=== PATIENT | female | born 2000 | race Caucasian/White ===

== ENCOUNTER 2022-03-02 12:59 | Outpatient (CLI) | payer MEDICAID ==
[~2022-03-02] VITALS: Ht 157.5 cm; Wt 64.1 kg
[2022-03-02 13:02] VITALS: BP 111/67
[2022-03-02 13:05] VITALS: BP 111/67
[2022-03-02 13:27] LABS: BILIRUBIN,URINE NEGATIVE (NEGATIVE); CLARITY,URINE CLEAR; COLOR,URINE YELLOW; GLUCOSE, URINE (UA) NEGATIVE (NEGATIVE); KETONES,URINE 1+ (NEGATIVE); LEUKOCYTE ESTERASE ,URINE 1+ (NEGATIVE); NITRITE,URINE NEGATIVE (NEGATIVE); PH,URINE 6.5 (5-9); PROTEIN,URINE NEGATIVE (NEGATIVE)
[2022-03-02 13:48] LABS: BACTERIA,URINE MODERATE /HPF
[2022-03-02 14:00] VITALS: BP 111/67
[2022-03-02] MEDS ORDERED: ONDANSETRON 4 MG (ZOFRAN) ORAL DISSOLVE TAB PO ONE (14:15)
[2022-03-02] MEDS ORDERED: ACETAMINOPHEN 500 MG TAB (TYLENOL) PO ONE (14:15)
[2022-03-02 14:39] VITALS: BP 109/67
[2022-03-02] MEDS ORDERED: PREN1TAB19 PO (15:24)
[2022-03-02] MEDS ORDERED: ONDA4TAB11 PO (15:25)
[2022-03-02 15:41] VITALS: BP 109/67
--- NOTE | 2022-03-03 08:37 | Physician Query-Final Dx ---
Clinic Account Progress/Dx Physician Query: Please give diagnosis Please include # of weeks gestation Date of Service March 02, 2022 at 12:59 HERLINDA,OctMar 03, 2022 08:37
== END 2022-03-02 15:41 | disposition home or self-care (01) ==
LOC: WSo 12:59 → LDRP 12:59 → WSo 15:41
PROVIDERS: ATTEND Family Medicine
DX: Z34.93 Encounter for supervision of normal pregnancy, unspecified, third trimester (principal); Z3A.39 39 weeks gestation of pregnancy
CPT/HCPCS: 81000; 84112; 87088; G0463; 99214

== ENCOUNTER 2022-03-07 14:45 | Inpatient (IN) | payer OTHER, MEDICAID ==
[2022-03-07] VITALS (8 sets, daily range): BP systolic 85–115; BP diastolic 48–64
[~2022-03-07] VITALS: Ht 157.5 cm; Wt 66.2 kg
[~2022-03-07 14:45] MED LIST: ONDA4TAB11 PO; PREN1TAB19 PO
[2022-03-07] MEDS ORDERED: LACTATED RINGERS 1,000 ML IV SCH (20:15)
[2022-03-07] MEDS ORDERED: CATHETER FLUSH 10 ML SYR IV PRN (20:15)
[2022-03-07] MEDS ORDERED: BUTORPHANOL INJ 2 MG/ML (STADOL) VIAL IV PRN (20:15)
[2022-03-07] MEDS ORDERED: LIDOCAINE/EPI 2% 1:200,00 (XYLOCAINE) 10 ML VIAL INJ PRN (20:15)
[2022-03-07] MEDS ORDERED: MINERAL OIL 30 ML TOP PRN (20:15)
[2022-03-07] MEDS ORDERED: TERBUTALINE INJ 1 MG/ML (BRETHINE) AMP SC PRN (20:15)
[2022-03-07] MEDS ORDERED: ZOLPIDEM 5 MG (AMBIEN) TAB PO ONE (20:15)
[2022-03-07] MEDS ORDERED: ONDANSETRON 4 MG/2 ML (SDV) Z0FRAN ONE (20:16)
[2022-03-07] MEDS ORDERED: D5 LR IV SOLUTION 1,000 ML IV ONE (20:17)
[2022-03-07] MEDS ORDERED: CLINDAMYCIN 900 MG/50 ML IVPB 50 ML IV ONE (20:21)
[2022-03-07] MEDS: D5 LR IV SOLUTION 1,000 ML IV SCH (20:34)
[2022-03-07] MEDS: ONDANSETRON 4 MG/2 ML (SDV) Z0FRAN IVP PRN (20:34)
[2022-03-07 20:38] LABS: BILIRUBIN,URINE NEGATIVE (NEGATIVE); CLARITY,URINE CLEAR; COLOR,URINE YELLOW; GLUCOSE, URINE (UA) NEGATIVE (NEGATIVE); KETONES,URINE NEGATIVE (NEGATIVE); LEUKOCYTE ESTERASE ,URINE 1+ (NEGATIVE); NITRITE,URINE NEGATIVE (NEGATIVE); PH,URINE 6.5 (5-9); PROTEIN,URINE NEGATIVE (NEGATIVE)
[2022-03-07 20:38] LABS: BASOPHILS % (AUTO) 0 % (0-10); EOSINOPHILS # (AUTO) 0.1 10^3/uL (0.0-0.3); EOSINOPHILS % (AUTO) 1 % (0-10); HEMATOCRIT 31 % (35-52); HEMOGLOBIN 10.2 g/dL (11.5-16.0); LYMPHOCYTES # (AUTO) 1.4 10^3/uL (1.0-4.0); LYMPHOCYTES % (AUTO) 14 % (12-44); MEAN CORPUSCULAR HEMOGLOBIN 27 pg (25-34); MEAN CORPUSCULAR HGB CONC 33 g/dL (32-36); MEAN CORPUSCULAR VOLUME 82 fL (80-99); MEAN PLATELET VOLUME 12.1 fL (9.0-12.2); MONOCYTES # (AUTO) 0.9 10^3/uL (0.0-1.0); MONOCYTES % (AUTO) 9 % (0-12); NEUTROPHILS # (AUTO) 7.7 10^3/uL (1.8-7.8); NEUTROPHILS % (AUTO) 76 % (42-75); PLATELET COUNT 225 10^3/uL (130-400); WHITE BLOOD COUNT 10.2 10^3/uL (4.3-11.0)
[2022-03-07 20:48] LABS: BACTERIA,URINE LARGE /HPF
[2022-03-07] MEDS: CLINDAMYCIN 900 MG/50 ML IVPB 50 ML IV SCH (21:06)
[2022-03-07] MEDS ORDERED: ZOLPIDEM 5 MG (AMBIEN) TAB ONE (22:50)
[2022-03-08] VITALS (50 sets, daily range): BP systolic 81–125; BP diastolic 46–81
[2022-03-08] MEDS: D5 LR IV SOLUTION 1,000 ML IV SCH (05:09)
[2022-03-08] MEDS: CLINDAMYCIN 900 MG/50 ML IVPB 50 ML IV SCH ×2 (05:09→12:50)
--- NOTE | 2022-03-08 06:32 | History & Physical-OB ---
OB - Chief Complaint & HPI Date/Time Date of Admission: Date of Admission: Mar 07, 2022 at 19:21 Date seen by a Provider: Mar 08, 2022 Time Seen by a Provider: 06:25 Chief Complaint/History OB-Reason for Admission/Chief: Induction of Labor Hx : 1 Hx Para: 0 Expected Date of Delivery: Mar 08, 2022 Gestational Age in Weeks: 39 Gestational Age in Days: 6 Admission Nurse Assessment Rev: Yes History of Labs GBS positive Allergies and Home Medications Allergies Coded Allergies: Penicillins (Verified Allergy, Unknown, 03/02/22) PT STATES UNKNOWNALLERGY. PARENT TOLD HER A CHILD SHE COULDN'T TAKE PCN Patient Home Medication List Home Medication List Reviewed: Yes Ondansetron (Ondansetron Odt) 4 Mg Tab.rapdis, 4 MG PO DAILY, (Reported) Entered as Reported by: BROOKS HERRON on 03/02/22 1525 Vit/Iron Fumarate/FA ( Vitamins Tablet) 28 Mg Iron-800 Mcg Tablet, 1 EACH PO DAILY, (Reported) Entered as Reported by: BROOKS HERRON on 03/02/22 1524 OB - History Hx of Present Care: Yes Ultrasounds: Normal mid trimester US Obstetrical Complications: None Medical Complications: None Patient Past Medical History no chronic medical problems Immunizations Influenza Vaccine Up-to-Date: Yes; Up-to-Date First/Initial COVID19 Vaccine: 2020 unsure of month (thinks Jun.) Second COVID19 Vaccination: 2020 unsure of month (thinks Sep.) COVID19 Vaccine Grapple Crew Leader: Unsure OB - Admission Exam Physical Exam Vitals: Vital Signs 03/08/22 03/08/22 03:41 04:40 Temp 36.6 Pulse 107 Resp 20 B/P (MAP) 104/57 (73) Pulse Ox 98 O2 Delivery Room Air HEENT: Moist Membranes Heart: Rhythm Normal Lungs: Clear Abdomen: Gravid Cervical Dilatation: 1cm Effacement: 50% Station: -3 Membranes: Intact Accelerations: Accelerations Present Short Term Variability: Present Job Superintendent Variability: Average (6-25) Contractions on Admission: 6-10 Minutes Apart Intensity: Mild Estes Scoring Tool (Modified) Dilation (cm): 1-2cm (1) Effacement (%): 31-51% (1) Descent/Station: -3 (0) Cervix Consistency: Medium(1) Cervix Position: Middle/Mid-Position (1) Estes Score: 4 Labs Laboratory Tests Test 03/07/22 19:30 03/07/22 20:00 Range/Units Urine Color YELLOW Urine Clarity CLEAR Urine pH 6.5 5-9 Urine Specific [place] 1.010 L 1.016-1.022 Urine Protein NEGATIVE NEGATIVE Urine Glucose (UA) NEGATIVE NEGATIVE Urine Ketones NEGATIVE NEGATIVE Urine Nitrite NEGATIVE NEGATIVE Urine Bilirubin NEGATIVE NEGATIVE Urine Urobilinogen 0.2 < = 1.0 MG/DL Urine Leukocyte Esterase 1+ H NEGATIVE Urine RBC (Auto) NEGATIVE NEGATIVE Urine RBC NONE /HPF Urine WBC 5-10 H /HPF Urine Squamous Epithelial Cells 5-10 /HPF Urine Renal Epithelial Cells NONE /HPF Urine Crystals NONE /LPF Urine Bacteria LARGE H /HPF Urine Casts NONE /LPF Urine Mucus SMALL H /LPF Urine Culture Indicated YES White Blood Count 10.2 4.3-11.0 10^3/uL Red Blood Count 3.81 3.80-5.11 10^6/uL Hemoglobin 10.2 L 11.5-16.0 g/dL Hematocrit 31 L 35-52 % Mean Corpuscular Volume 82 80-99 fL Mean Corpuscular Hemoglobin 27 25-34 pg Mean Corpuscular Hemoglobin Concent 33 32-36 g/dL Red Cell Distribution Width 14.0 10.0-14.5 % Platelet Count 225 130-400 10^3/uL Mean Platelet Volume 12.1 9.0-12.2 fL Immature Granulocyte % (Auto) 1 % Neutrophils (%) (Auto) 76 H 42-75 % Lymphocytes (%) (Auto) 14 12-44 % Monocytes (%) (Auto) 9 0-12 % Eosinophils (%) (Auto) 1 0-10 % Basophils (%) (Auto) 0 0-10 % Neutrophils # (Auto) 7.7 1.8-7.8 10^3/uL Lymphocytes # (Auto) 1.4 1.0-4.0 10^3/uL Monocytes # (Auto) 0.9 0.0-1.0 10^3/uL Eosinophils # (Auto) 0.1 0.0-0.3 10^3/uL Basophils # (Auto) 0.0 0.0-0.1 10^3/uL Immature Granulocyte # (Auto) 0.1 0.0-0.1 10^3/uL OB - Assessment/Plan/Diagnosis Assessment Assessment: induction of labor (at term 39w6d gestation) Admission Dx 1. IUP at term (39w6d) on presentation 2. GBS positive at 36 week perineal check Admission Status: Inpatient Order (span 2 midnights) Reason for Inpatient Admission: Induction of labor Plan Plan: Induction Induction Method: per Misoprostol Protocol Other Plan -cleocin 900mg IV q8hr due to GBS positive perineal check at 36 weeks. -she desires epidural ELVIE JONES MD Mar 08, 2022 06:31
[2022-03-08] MEDS ORDERED: OXYTOCIN PRE-MIX DRIP 500 ML IV SCH ×2 (06:45→15:45)
[2022-03-08] MEDS: ONDANSETRON 4 MG/2 ML (SDV) Z0FRAN IVP PRN (07:47)
[2022-03-08] MEDS ORDERED: fentaNYL 2 mcg/ml BUPIVA 0.125 100 ML ONE (07:54)
[2022-03-08] MEDS ORDERED: BUPIVACAINE 0.25% 10 ML (SENSORCAINE) VIAL ONE (08:12)
[2022-03-08] MEDS ORDERED: fentaNYL INJ 100 MCG/2 ML AMP ONE (08:12)
[2022-03-08] MEDS ORDERED: EPIDURAL (fentaNYL 2 MCG/ML BUPIVA 0.125%)100 ML BAG EPI PRN (09:15)
[2022-03-08] MEDS ORDERED: ONDANSETRON 4 MG/2 ML (SDV) Z0FRAN IV PRN (09:15)
[2022-03-08] MEDS ORDERED: LACTATED RINGERS 1,000 ML IV ONE ×2 (09:15)
[2022-03-08] MEDS ORDERED: NALOXONE 0.4 MG/ML 1 ML (NARCAN) VIAL IV PRN ×2 (09:15→15:45)
[2022-03-08] MEDS ORDERED: fentaNYL INJ 100 MCG/2 ML AMP INJ ONE (09:15)
[2022-03-08] MEDS ORDERED: fentaNYL 2 mcg/ml BUPIVA 0.125 100 ML EPI PRN (09:30)
[2022-03-08] MEDS ORDERED: MEPIVACAINE (CARBOCAINE) 2% 50 ML VIAL ONE (14:29)
[2022-03-08] MEDS ORDERED: MEPIVACAINE (CARBOCAINE) 2% 20 ML VIAL INJ ONE (14:31)
--- NOTE | 2022-03-08 15:34 | OB Labor & Delivery Record ---
L&D History Date of Service Date of Service: Mar 08, 2022 History Expected Date of Delivery: Mar 08, 2022 Gestational Age in Weeks: 39 Hx : 1 Hx Para: 1 Complications Events: Routine care Operative Indications (Cesarea: N/A-Vaginal Delivery Intrapartal Events: Ineffective Pushing (requiring suction assist) Other Complications GBS positive by 36 week perineal check. Received 3 doses of cleocin 900mg IV q 8hrs. L&D Stage1 Stage One Onset of Labor - Date: Mar 08, 2022 Onset of Labor - Time: 06:20 Monitors and Tracing Monitor Mode: Internal Heart Rate: 115 Monitor Accelerations: Uniform Monitor Decelerations: Variable Station: 0 Halfway Variability: Average (6-10) Short Term Variability: Present Presentation: Vertex Vital Signs VS - Last 72 Hours, by Label 03/07/22 03/07/22 03/07/22 03/07/22 19:55 19:55 21:10 21:40 Temp 36.8 36.8 Pulse 71 71 81 77 Resp 20 20 20 20 B/P (MAP) 115/63 (80) 100/56 (71) 100/50 (67) Pulse Ox 98 98 O2 Delivery Room Air Room Air Room Air Room Air 03/07/22 03/07/22 03/07/22 03/07/22 22:11 22:41 23:11 23:42 Temp 36.7 Pulse 77 77 71 68 Resp 20 20 20 20 B/P (MAP) 102/64 (77) 109/64 (79) 97/55 (69) 85/48 (60) Pulse Ox 98 O2 Delivery Room Air Room Air Room Air Room Air 03/07/22 03/08/22 03/08/22 03/08/22 23:45 00:11 00:41 01:40 Pulse 68 66 81 61 Resp 20 20 20 20 B/P (MAP) 97/56 (70) 81/46 (58) 99/54 (69) 84/49 (61) O2 Delivery Room Air Room Air Room Air Room Air 03/08/22 03/08/22 03/08/22 03/08/22 02:10 02:40 03:13 03:41 Temp 36.6 Pulse 69 74 80 67 Resp 20 20 20 20 B/P (MAP) 106/62 (77) 105/60 (75) 104/70 (81) 118/57 (77) Pulse Ox 98 O2 Delivery Room Air Room Air Room Air Room Air 03/08/22 03/08/22 03/08/22 03/08/22 04:11 04:40 05:20 05:40 Pulse 58 107 70 68 Resp 20 20 20 20 B/P (MAP) 125/58 (80) 104/57 (73) 108/57 (74) 99/57 (71) O2 Delivery Room Air Room Air Room Air Room Air 03/08/22 03/08/22 03/08/22 03/08/22 06:10 06:40 07:15 07:30 Temp 35.9 Pulse 88 70 68 Resp 20 20 18 B/P (MAP) 103/55 (71) 123/77 (92) 105/64 (78) O2 Delivery Room Air Room Air Room Air 03/08/22 03/08/22 03/08/22 03/08/22 07:45 08:11 08:15 08:20 Pulse 66 61 56 68 Resp 18 18 18 18 B/P (MAP) 123/73 (90) 119/56 (77) 119/77 (91) 111/77 (88) Pulse Ox 100 100 100 O2 Delivery Room Air Room Air Room Air Room Air 03/08/22 03/08/22 03/08/22 03/08/22 08:25 08:30 08:45 08:50 Pulse 71 88 57 88 Resp 18 18 18 18 B/P (MAP) 119/63 (81) 120/81 (94) 96/58 (71) 96/61 (73) Pulse Ox 100 100 99 100 O2 Delivery Room Air Room Air Room Air Room Air 03/08/22 03/08/22 03/08/22 03/08/22 08:55 09:00 09:15 09:30 Pulse 56 88 87 83 Resp 18 18 18 18 B/P (MAP) 113/59 (77) 120/81 (94) 105/63 (77) Pulse Ox 100 100 99 100 O2 Delivery Room Air Room Air Room Air Room Air 03/08/22 03/08/22 03/08/22 03/08/22 09:45 10:00 10:15 10:30 Pulse 68 68 82 62 Resp 18 18 18 18 B/P (MAP) 108/67 (81) 106/68 (81) 99/60 (73) 96/51 (66) Pulse Ox 100 100 92 99 O2 Delivery Room Air Room Air Room Air Room Air 03/08/22 03/08/22 03/08/22 03/08/22 10:45 11:00 11:15 11:21 Temp 36.8 Pulse 75 89 97 Resp 18 18 18 B/P (MAP) 98/55 (69) 104/64 (77) 94/53 (67) Pulse Ox 99 99 100 O2 Delivery Room Air Room Air Room Air 03/08/22 03/08/22 03/08/22 03/08/22 11:30 11:45 12:00 12:15 Pulse 97 95 95 72 Resp 18 18 18 18 B/P (MAP) 94/53 (67) 116/72 (87) 110/80 (90) 110/80 (90) Pulse Ox 100 99 100 98 O2 Delivery Room Air Room Air Room Air Room Air Signs of Distress by FHT Signs of Distress no Rupture of Membranes Spontaneous Ruture of Membrane: No Amniotic Membrane Rupture Time: 0620 Amniotic Membrane Fluid Desc.: Clear Vaginal Bleeding Description: None Induction/Anesthesia Epidural Cath Placement - Time: 0824 L&D Stage2 Stage Two Stage II Date: Mar 08, 2022 Stage II Time: 14:45 Monitors and Tracing Monitor Mode: Internal Heart Rate: 115 Monitor Accelerations: Uniform Monitor Decelerations: None Licensed Nursing Assistant Variability: Average (6-10) Short Term Variability: Present Position: Left Occiput Anterior Presentation: Vertex Signs of Distress by FHT Signs of Distress no Cord Descript/Complications Cord Vessel Description: 3 Vessels Delivery Type Infant Delivery Method: Spontaneous Vaginal Anterior Shoulder: Left Episiotomy/Perineal Laceration Laceraction(s)/Extensions: Yes Episiotomy Description: Midline, 3rd degree (partial) Sutures Used: Vicryl Condition of Delivery 1 minute Comment: 8 5 minute Comment: 9 Condition of Infant Condition of : Living Resuscitation Resuscitation: N/A - Spontaneous Resp L&D Stage3 Stage Three Stage III Date: Mar 08, 2022 Stage III Time: 14:50 Pictocin Pitocin Administration mu/min: 12 Pitocin ml/hr: 12 Pitocin Administration Comment: pitocin increased Placenta Delivery Placenta Delivery: Spontaneous Delivery Summary Summary Estimated blood loss (mL): 300 Condition of Delivery Examined: Cervix Examined Post Hemorrhage: No Intervention Required none ELVIE JONES MD Mar 08, 2022 15:34
[2022-03-08] MEDS ORDERED: WITCH HAZEL(TUCKS) 40 EA JAR TOP PRN (15:45)
[2022-03-08] MEDS ORDERED: MEASLES,MUMPS,RUBELLA 1 EA INJ SQ ONE (15:45)
[2022-03-08] MEDS ORDERED: BENZOCAINE/MENTHOL (DERMOPLAST) 56 ML CAN TP PRN (15:45)
[2022-03-08] MEDS ORDERED: TETANUS,DIPTH,PERTUSS P/F (BOOSTRIX) 0.5 ML VIAL IM ONE (15:45)
[2022-03-08] MEDS: ACETAMINOPHEN 500 MG TAB (TYLENOL) PO SCH (17:33)
[2022-03-08] MEDS: IBUPROFEN 600 MG (MOTRIN) TAB PO SCH (17:33)
[2022-03-08] MEDS: DOCUSATE SODIUM 100 MG (COLACE) CAP PO SCH (21:27)
[2022-03-08] MEDS ORDERED: ONDANSETRON 4 MG (ZOFRAN) ORAL DISSOLVE TAB ONE (21:57)
[2022-03-08] MEDS ORDERED: CATHETER FLUSH 10 ML SYR IV SCH (22:00)
[2022-03-08] MEDS: ONDANSETRON 4 MG (ZOFRAN) ORAL DISSOLVE TAB PO PRN (22:32)
[2022-03-09 00:16] VITALS: BP 113/56
[2022-03-09] MEDS: ACETAMINOPHEN 500 MG TAB (TYLENOL) PO SCH ×5 (00:16→23:58)
[2022-03-09] MEDS: IBUPROFEN 600 MG (MOTRIN) TAB PO SCH ×5 (00:16→23:58)
[2022-03-09 03:38] VITALS: BP 115/58
[2022-03-09 06:24] LABS: BASOPHILS % (AUTO) 0 % (0-10); EOSINOPHILS # (AUTO) 0.1 10^3/uL (0.0-0.3); EOSINOPHILS % (AUTO) 1 % (0-10); HEMATOCRIT 28 % (35-52); LYMPHOCYTES # (AUTO) 1.7 10^3/uL (1.0-4.0); LYMPHOCYTES % (AUTO) 11 % (12-44); MEAN CORPUSCULAR HEMOGLOBIN 27 pg (25-34); MEAN CORPUSCULAR HGB CONC 32 g/dL (32-36); MEAN CORPUSCULAR VOLUME 84 fL (80-99); MEAN PLATELET VOLUME 12.2 fL (9.0-12.2); MONOCYTES # (AUTO) 1.2 10^3/uL (0.0-1.0); MONOCYTES % (AUTO) 8 % (0-12); NEUTROPHILS # (AUTO) 11.4 10^3/uL (1.8-7.8); NEUTROPHILS % (AUTO) 79 % (42-75); PLATELET COUNT 175 10^3/uL (130-400); WHITE BLOOD COUNT 14.5 10^3/uL (4.3-11.0)
[2022-03-09 08:45] VITALS: BP 116/56
[2022-03-09] MEDS: FERROUS SULF 325 MG (IRON) TAB PO SCH (08:52)
[2022-03-09] MEDS: DOCUSATE SODIUM 100 MG (COLACE) CAP PO SCH ×2 (08:52→21:02)
[2022-03-09] MEDS ORDERED: DIBUCAINE 1% OINTMENT 30 GM TUBE TOP PRN (09:00)
[2022-03-09] MEDS: ONDANSETRON 4 MG (ZOFRAN) ORAL DISSOLVE TAB PO PRN (09:09)
[2022-03-09 12:15] VITALS: BP 101/50
[2022-03-09 17:30] VITALS: BP 109/57
[2022-03-09 21:00] VITALS: BP 115/61
--- NOTE | 2022-03-09 21:31 | Progress Note ---
Subjective Date Seen by a Provider: Mar 09, 2022 Time Seen by a Provider: 06:50 Subjective/Events-last exam No major complaints. Still a little sore on the perineum. She has had urine output Objective Exam Vital Signs Date Time Temp Pulse Resp B/P (MAP) Pulse Ox O2 Delivery O2 Flow Rate FiO2 03/09/22 17:30 36.8 71 18 109/57 (74) 96 Room Air 03/09/22 12:15 37.2 62 18 101/50 (67) 97 Room Air 03/09/22 08:45 36.7 62 18 116/56 (76) 98 Room Air 03/09/22 03:38 36.8 66 18 115/58 (77) 97 Room Air 03/09/22 00:16 36.4 71 18 113/56 (75) 98 Room Air I & O 03/09/22 06:59 Intake Total 650 ml Balance 650 ml Capillary Refill : Less Than 3 Seconds General Appearance: No Apparent Distress Respiratory: Lungs Clear Cardiovascular: Regular Rate, Rhythm Gastrointestinal: soft Results Lab Laboratory Tests 03/09/22 05:57: White Blood Count 14.5H, Red Blood Count 3.34L, Hemoglobin 9.0L, Hematocrit 28L, Mean Corpuscular Volume 84, Mean Corpuscular Hemoglobin 27, Mean Corpuscular Hemoglobin Concent 32, Red Cell Distribution Width 14.1, Platelet Count 175, Mean Platelet Volume 12.2, Immature Granulocyte % (Auto) 1, Neutrophils (%) (Auto) 79H, Lymphocytes (%) (Auto) 11L, Monocytes (%) (Auto) 8, Eosinophils (%) (Auto) 1, Basophils (%) (Auto) 0, Neutrophils # (Auto) 11.4H, Lymphocytes # (Auto) 1.7, Monocytes # (Auto) 1.2H, Eosinophils # (Auto) 0.1, Basophils # (Auto) 0.0, Immature Granulocyte # (Auto) 0.1 Microbiology 03/07/22 Urine Culture - Final, Complete Gram Pos Mixed Bacterial Elizabeth Assessment/Plan Assessment/Plan Assess & Plan/Chief Complaint 1. S/P with suction assist day 1 -plan on monitoring her symptoms today. Possible home later today or in the am. -ELVIE Gupta MD Mar 09, 2022 21:31
[2022-03-10] MEDS: IBUPROFEN 600 MG (MOTRIN) TAB PO SCH (06:06)
[2022-03-10] MEDS: ACETAMINOPHEN 500 MG TAB (TYLENOL) PO SCH (06:06)
[2022-03-10 06:14] VITALS: BP 109/64
[2022-03-10] MEDS ORDERED: DOCU100C37 PO (08:19)
[2022-03-10] MEDS ORDERED: IBUP-844 PO (08:19)
--- NOTE | 2022-03-10 08:20 | Discharge Inst-Women's Service ---
Discharge Inst-Women's Serv Depart Medication/Instructions New, Converted or Re-Newed RX: Transmitted to Pharmacy Problems Reviewed?: Yes Consults/Follow Up Additional Follow Up: Yes (Dr Jones in 6 weeks at [facility]) Activity Driving Instructions: No Driving for 1 Week Nothing Inside Vagina: No [place] (for 6 weeks.) Diet Discharge Diet: Regular Diet Return to The Hospital For: as below Symptoms to Report to : Pain Increased, Fever Over 101 Degrees F, Vaginal Bleeding Increase, Vaginal Discharge Foul For Any Problems or Questions: Contact Your Physician ELVIE JONES MD Mar 10, 2022 08:20
--- NOTE | 2022-03-10 08:21 | Discharge Summary ---
Diagnosis/Chief Complaint Date of Admission Mar 07, 2022 at 19:21 Date of Discharge Discharge Summary-OBS Procedures None. Discharge Physical Examination Allergies: Coded Allergies: Penicillins (Verified Allergy, Unknown, 03/02/22) PT STATES UNKNOWNALLERGY. PARENT TOLD HER A CHILD SHE COULDN'T TAKE PCN Vitals & I&Os Intake and Output 03/10/22 00:00 Intake Total 1000 ml Balance 1000 ml Vital Sign - Last 12Hours Date Time Temp Pulse Resp B/P (MAP) Pulse Ox O2 Delivery O2 Flow Rate FiO2 03/10/22 06:14 36.2 63 18 109/64 (79) 98 Room Air 03/08/22 14:30 15.00 Hospital Course Labs Microbiology 03/07/22 Urine Culture - Final, Complete Gram Pos Mixed Bacterial Elizabeth Discharge Instructions to patient/family Please see electronic discharge instructions given to patient. Discharge Medications Reviewed and agree with Discharge Medication list on patient's Discharge Instruction sheet ELVIE JONES MD Mar 10, 2022 08:20
[2022-03-10] MEDS: FERROUS SULF 325 MG (IRON) TAB PO SCH (08:27)
[2022-03-10] MEDS: DOCUSATE SODIUM 100 MG (COLACE) CAP PO SCH (08:27)
[2022-03-10 08:30] VITALS: BP 115/64
[2022-03-10] MEDS: ONDANSETRON 4 MG (ZOFRAN) ORAL DISSOLVE TAB PO PRN (08:55)
[2022-03-10 11:15] VITALS: BP 115/64
== END 2022-03-10 11:15 | disposition home or self-care (01) | DRG 768 ==
LOC: LDRP 19:21
PROVIDERS: ADMIT Family Medicine; ATTEND Family Medicine
PROC: 3E0DXGC Introduction of Other Therapeutic Substance into Mouth and Pharynx, External Approach (ICD-10-PCS; 2022-03-07)
PROC: 10E0XZZ Delivery of Products of Conception, External Approach (ICD-10-PCS; principal; 2022-03-08)
PROC: 0DQR0ZZ Repair Anal Sphincter, Open Approach (ICD-10-PCS; 2022-03-08)
PROC: 0W8NXZZ Division of Female Perineum, External Approach (ICD-10-PCS; 2022-03-08)
DX: O99.824 Streptococcus B carrier state complicating childbirth (principal); Z37.0 Single live birth; Z3A.39 39 weeks gestation of pregnancy; O70.20 Third degree perineal laceration during delivery, unspecified; Z88.0 Allergy status to penicillin
CPT/HCPCS: 36415; 81000; 83033; 85025; 86762; 86850; 86900; 86901; 87088